=== PATIENT | male | born 1965 | race African-American/Black ===

== ENCOUNTER 2020-02-09 09:00 | Outpatient (RCR) | payer OTHER, SELFPAY ==
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
--- NOTE | 2019-11-25 11:36 | HMH.RHREAS ---
Rehab Reassessment Rehab OP Re-assessment Start: 11/25/19 11:22 Freq: Status: Active Protocol: Document 11/25/19 11:23 OSITO (Rec: 11/25/19 11:36 TARIBULMARORATNA [id number]) Electronically Signed By John Marina, PT 11/25/19 11:23 Rehab Re-assessment Subjective Subjective PT REPORTS 2-4/10 NECK PAIN ON VAS, AND FEELS 60% BETTER OVERALL SINCE I EVAL Objective Objective Notes CROM: FLX 0-45, EXT 0-50, L SB 0-40, R SB 0-45, B ROT 0-50 TTP: R UT 1-2/4, L UT 2/4, B SCALENE 1/4 MMT: B DELTOID MM 4+-5/5 Assessment Progress Assessment Progressing as Expected Assessment Notes pt with improved ROM, STRENGTH , AND TTP Patient goals met STG'S 09/18 LTG'S 04/21 Goals Not Met LTG'S 09/21 Plan Plan PT TO CONT. W/SKILLED P.T. TO MAKE FURTHER IMPROVEMENTS IN AROM, STRENGTH, AND TTP TO ALLOW FOR OPTIMAL FUNCTION Frequency of Therapy 1-2X/WK Duration of therapy 3-4WKS Time and Billing Re-Eval Time 15 Re-Eval Billing Units 1 PHYSICIAN CERTIFICATION: I certify the specified therapy services for [place] are required, authorized, and reviewed every 30 days.
--- NOTE | 2019-12-25 11:29 | HMH.RHREAS ---
Rehab Reassessment Rehab OP Re-assessment Start: 11/25/19 11:22 Freq: Status: Active Protocol: Document 12/25/19 11:24 OSITO (Rec: 12/25/19 11:28 TARIBULMARORATNA [id number]) Electronically Signed By John Marina, PT 12/25/19 11:24 Rehab Re-assessment Subjective Subjective PT REPORTS 0-4/10 NECK PAIN W/ ACTIVITY ON VAS, AND FEELS 85% BETTER OVERALL SINCE I EVAL Objective Objective Notes CROM: FLX 0-65, EXT 0-55, L SB 0-55, R SB 0-55, B ROT 0-60 TTP: R UT 1/4, L UT 1-2/4, B SCALENE 0-1/4 MMT: B DELTOID MM 5/5 Assessment Progress Assessment Progressing as Expected Assessment Notes pt with improved ROM, STRENGTH , AND TTP Patient goals met STG'S 09/18 LTG'S 09/21 Goals Not Met LTG'S 04/21 Plan Plan PT TO CONT. W/SKILLED P.T. TO MAKE FURTHER IMPROVEMENTS IN AROM, STRENGTH, AND TTP TO ALLOW FOR OPTIMAL FUNCTION Frequency of Therapy 1-2X/WK Duration of therapy 3-4WKS Time and Billing Re-Eval Time 15 Re-Eval Billing Units 1 PHYSICIAN CERTIFICATION: I certify the specified therapy services for [place] are required, authorized, and reviewed every 30 days.
== END 2020-02-09 09:05 | disposition home or self-care (01) ==
LOC: PT 09:00
PROVIDERS: PCP Internal Medicine Adolescent Medicine; Visit Provider Internal Medicine Adolescent Medicine
DX: M54.2 Cervicalgia (principal)
CPT/HCPCS: 20560; 97010; 97014; 97035; 97110; 97140; 97163; 97164; G0283

== ENCOUNTER → 2020-04-16 11:21 | Outpatient (CLI) | payer OTHER, SELFPAY ==
[2020-04-16 11:39] LABS: Basophils # 0.1 K/mm3 (0-0.2); Basophils % 1.1 % (0.1-2.0); Eosinophils # 0.2 K/mm3 (0.0-0.4); Eosinophils % 4.4 % (0.1-12.0); Hematocrit 49.1 % (42.0-52.0); Hemoglobin 15.7 g/dL (14.1-18.0); Lymphocytes # 2.1 K/mm3 (0.7-4.5); Lymphocytes % 46.1 % (10-50); Mean Corpuscular HGB Conc 31.9 g/dL (31.8-35.4); Mean Corpuscular Hemoglobin 28.1 pg (27.0-31.2); Mean Platelet Volume 7.5 fl (7.4-10.4); Monocytes # 0.4 K/mm3 (0.1-1.0); Monocytes % 7.6 % (1.7-9.3); Neutrophils # 1.9 K/mm3 (1.8-7.8); Neutrophils % 40.7 % (37.0-80.0); Platelet Count 423 K/mm3 (142-424); Red Blood Count 5.58 M/mm3 (4.60-6.20); Red Cell Distribution Width 13.4 % (11.5-17.5); White Blood Count 4.6 K/mm3 (4.8-10.8)
[2020-04-16 12:12] LABS: Hemoglobin A1C 6.5 % (4.0-6.0)
[2020-04-16 12:42] LABS: Alanine Aminotransferase 36 U/L (12-78); Albumin Level 4.7 g/dl (3.5-5.0); Albumin/Globulin Ratio 1.4 (1.1-1.8); Alkaline Phosphatase 65 U/L (38-126); Anion Gap 14.2 mEq/L (5-15); Aspartate Amino Transferase 34 U/L (17-59); Bilirubin,Total 0.4 mg/dl (0.2-1.3); Blood Urea Nitrogen 11 mg/dl (9-20); Calcium 10.2 mg/dl (8.4-10.2); Carbon Dioxide 29 mmol/L (22.0-30.0); Chloride 99 mmol/L (98-107); Chol/HDL Ratio 3.9 (1-3.5); Cholesterol 134 mg/dl (140-200); Estimated Glomerular Filt Rate 70 ml/min (>60); GFR (African American) 85 ML/MIN (>60); Globulin 3.4 g/dL (1.3-3.2); Glucose 108 mg/dl (74-100); HDL Cholesterol 34 mg/dl (40-60); Potassium 5.2 mmoL/L (3.5-5.1); Sodium 137 mmol/L (136-145); Total Protein,Serum 8.1 g/dl (6.3-8.2); Triglycerides 72 mg/dl (30-150); Uric Acid 5.1 mg/dl (3.5-8.5); VLDL Cholesterol 14 mg/dL (0-40)
[2020-04-16 12:53] LABS: Direct LDL Cholesterol 80.75 mg/dL (100-129)
[2020-04-16 13:13] LABS: Thyroid Stimulating Hormone 2.32 uIU/mL (0.465-4.68)
== END ==
PROVIDERS: Visit Provider Nurse Practitioner Family
DX: Z00.00 Encounter for general adult medical examination without abnormal findings (principal); I10 Essential (primary) hypertension; E78.5 Hyperlipidemia, unspecified; E11.9 Type 2 diabetes mellitus without complications; R31.9 Hematuria, unspecified
CPT/HCPCS: 36415; 80053; 80061; 83036; 84443; 84550; 85025

== ENCOUNTER → 2020-04-18 10:43 | Outpatient (CLI) | payer OTHER, SELFPAY ==
--- NOTE | 2020-04-18 10:51 | CT_ITS ---
PROCEDURE: CT ABDOMEN PELVIS WO CON CLINICAL INDICATION: HEMATURIA,UNSPECIFIED TYPE Dysuria and hematuria COMPARISON: CT ABDPELW CT ABD PELVIS W/ CONTRAST from 12/30/[address] abdomen pelvis wo con from 07/06/2017 TECHNIQUE: Axial images obtained with sagittal and coronal reformats. All CT scans at the facility use one or more dose reduction, viz: automated exposure control, ma/kV adjustment per patient size (including targeted exams where dose is matched to indication, i.e. head), or iterative reconstruction technique. FINDINGS: LOWER THORAX: There is a small defect within the right hemidiaphragm medially containing fat. ABDOMEN & PELVIS: There is a small hiatal hernia. Fatty liver infiltration. No focal liver lesion apparent. The gallbladder, spleen, adrenal glands, and pancreas have an unremarkable unenhanced appearance. No renal or ureteral calculi. No hydronephrosis. Small cyst suspected in the upper pole of the left kidney at 7 mm. There are scattered small retroperitoneal lymph nodes and small mesenteric lymph nodes. No evidence of appendicitis. There is colonic diverticulosis throughout the colon. No evidence of diverticulitis. No pelvic mass or abnormal fluid collection. There is minimal thickening of the urinary bladder wall nonspecific. There are mild osteoarthritic changes of the hips IMPRESSION: 1. No renal or ureteral calculi. 2. Minimal thickening of the urinary bladder wall which may be due to incomplete distention or mild cystitis. Dictated by: Edmund Sampson MD 04/18/2020 11:27 Edmund Sampson MD in [place] 04/18/2020 11:27
== END ==
PROVIDERS: PCP Internal Medicine Adolescent Medicine; Visit Provider Nurse Practitioner Family
DX: R31.9 Hematuria, unspecified (principal)
CPT/HCPCS: 74176

== ENCOUNTER → 2020-04-21 14:50 | Outpatient (CLI) | payer OTHER, SELFPAY ==
[2020-04-21 16:40] LABS: Prostate Specific Ag Screen 0.4 ng/ml (0.0-4.0)
== END ==
PROVIDERS: Visit Provider Urology
DX: Z12.5 Encounter for screening for malignant neoplasm of prostate (principal)
CPT/HCPCS: 36415; G0103

== ENCOUNTER 2020-07-22 13:49 | Emergency (ER) | payer OTHER, SELFPAY ==
[2020-07-22 14:28] VITALS: BP 137/84; PULSE 69; RESP 18; TEMP 36.9; O2SAT 98; BMI 35.6
--- NOTE | 2020-07-22 14:34 | HMH.EDUTC ---
[facility] [place] Disposition Clinical Impression: Bee sting Qualifiers: Encounter type: initial encounter Injury intent: accidental or unintentional Qualified Code(s): T63.441A - Toxic effect of venom of bees, accidental (unintentional), initial encounter Disposition: Home, Self-Care Condition on Discharge: Good Instructions: DI for Insect Bites and Stings Additional Instructions: Asymptomatic. RTC immediately if symptoms occur. Referrals: Fran Villasenor MD [Primary Care Provider] - Time of Disposition: 14:42 Medical Decision Making - [place] Inquiry Pt receiving controlled substance: No Vital Signs: 07/22/20 14:28 Temperature 98.4 F Temperature Source Oral Pulse Rate [Left] 69 Respiratory Rate 18 Blood Pressure [Right Arm] 137/84 Blood Pressure Mean [Right Arm] 101 02 Sat by Pulse Oximetry 98 [facility] [place] HPI - General Stated complaint: bee sting (allergic) Time Seen by Provider: 07/22/20 14:34 Mode of Arrival: Ambulatory Source of Information: Patient Limitations: No Limitations Description of Symptoms (Recalled from Triage Doc. by RN): PT states that he got stung by maybe a wood bee but he got stung by a bee when he was 32 so he thought he should get checked. HEENT Symptoms (Recalled from RN notes): No Resp Symptoms (Recalled from RN notes): No Skin Symptoms (Recalled from RN notes): Yes MS Symptoms (Recalled from RN notes): No Functional Status (Recalled from RN notes): wnl - History of Present Illness Provider Complaint: Patient states that he was stung by what he thinks was a wood bee on his right elbow a little over an hour ago. 20 years ago he was stung by a wasp and had trouble breathing so he rushed in, but now he states that he is fine. No swelling, itching, or difficulty breathing. Onset (ago): hour(s) (1) Location: right, upper extremity Relieving factors: none Exacerbating factors: none Associated symptoms: denies other symptoms Treatments prior to arrival: none - Related Data Home Medications Medication Instructions Recorded Confirmed ALPRAZolam [Xanax 1mg tab] 1 mg PO DAILY 07/06/17 07/07/20 Lisinopril/Hydrochlorothiazide 1 tab PO DAILY 07/06/17 07/07/20 [Lisinopril-Hctz 20-12.5 mg Tab] Escitalopram Oxalate 10 mg PO DAILY 07/05/18 07/07/20 Omeprazole [Omeprazole 20mg Tab] 20 mg PO DAILY 07/05/18 07/07/20 fluticasone propionate 50 g INTRANASAL 06/13/20 07/07/20 mcg/actuation nasal spray,suspension Previous Rx's Medication Instructions Recorded fexofenadine 180 mg tablet 180 mg PO DAILY #30 tab 06/13/20 Allergies Allergy/AdvReac Type Severity Reaction Status Date / Time venom-honey bee Allergy Intermediate SWELLING Verified 07/22/20 14:11 [BEE VENOM (HONEY BEE)] TO THROAT - Worker's Comp Is this a Worker's Comp case?: No [facility] History - Hepatitis A Screen Drug use history?: No High risk sexual behaviors?: No History of sexually transmitted infection?: No Currently employed?: No Childcare worker?: No Do you have indoor plumbing?: Yes Do you have electricity?: Yes Attestation statement:: This patient has been screened for Hepatitis A risk factors. I have reviewed the patient's past medical history: Yes Medical History: Reports:: Gastroesophageal Reflux Disease(GERD) Denies:: Cancer, Diabetes Mellitus Type 1, Diabetes Mellitus Type 2, MRSA Other Medical History: Reports: Arthritis, Sinus Problems Other Surgeries: Yes: No Previous Surgery, Colonoscopy, Other Amputation: No Fractures: No - Social History Smoking Status: Never smoker Tobacco Type: smokeless tobacco Alcohol Intake: current Alcohol Intake Frequency:: holidays/special occasions only Substance Use Type: denies use Occupational Status: employed Housing: house Household Members: spouse Family Hx:: Hyperlipidemia, Hypertension, Diabetes, Heart Attack, Stroke ROS Obtained: Yes All systems reviewed & no additional complaints Physical Exam - General General appearance: alert, in no a
[2020-07-22 14:35] VITALS: BP 137/84; PULSE 69; RESP 18; TEMP 36.9; O2SAT 98
== END 2020-07-22 14:54 | disposition home or self-care (01) ==
PROVIDERS: Emergency Provider Physician Assistant; PCP Internal Medicine Adolescent Medicine
DX: T63.441A Toxic effect of venom of bees, accidental (unintentional), initial encounter (principal); I10 Essential (primary) hypertension; K21.9 Gastro-esophageal reflux disease without esophagitis; Z91.030 Bee allergy status
CPT/HCPCS: 99202; G0463

== ENCOUNTER → 2020-12-12 11:39 | Outpatient (CLI) | payer OTHER, SELFPAY ==
[2020-12-12 12:11] LABS: Basophils % 0.6 % (0.1-2.0); Eosinophils # 0.3 K/mm3 (0.0-0.4); Eosinophils % 4.8 % (0.1-12.0); Hematocrit 45.1 % (42.0-52.0); Hemoglobin 14.5 g/dL (14.1-18.0); Lymphocytes # 2.2 K/mm3 (0.7-4.5); Lymphocytes % 40.1 % (10-50); Mean Corpuscular HGB Conc 32.2 g/dL (31.8-35.4); Mean Corpuscular Hemoglobin 28.6 pg (27.0-31.2); Mean Corpuscular Volume 88.7 fl (80-94); Mean Platelet Volume 8.3 fl (7.4-10.4); Monocytes # 0.5 K/mm3 (0.1-1.0); Monocytes % 8.2 % (1.7-9.3); Neutrophils # 2.5 K/mm3 (1.8-7.8); Neutrophils % 46.4 % (37.0-80.0); Platelet Count 406 K/mm3 (142-424); Red Blood Count 5.09 M/mm3 (4.60-6.20); Red Cell Distribution Width 13.5 % (11.5-17.5); White Blood Count 5.5 K/mm3 (4.8-10.8)
[2020-12-12 12:31] LABS: Hemoglobin A1C 6.7 % (4.0-6.0)
[2020-12-12 12:53] LABS: Chloride 98 mmol/L (98-107); Potassium 4.7 mmoL/L (3.5-5.1); Sodium 137 mmol/L (136-145)
[2020-12-12 12:55] LABS: Blood Urea Nitrogen 12 mg/dl (9-20); Estimated Glomerular Filt Rate 101 ml/min (>60); GFR (African American) 122 ML/MIN (>60)
[2020-12-12 12:56] LABS: Alanine Aminotransferase 48 U/L (12-78); Albumin Level 4.2 g/dl (3.5-5.0); Albumin/Globulin Ratio 1.1 (1.1-1.8); Alkaline Phosphatase 71 U/L (38-126); Anion Gap 12.7 mEq/L (5-15); Aspartate Amino Transferase 44 U/L (17-59); Bilirubin,Total 0.3 mg/dl (0.2-1.3); Calcium 9.5 mg/dl (8.4-10.2); Carbon Dioxide 31 mmol/L (22.0-30.0); Cholesterol 129 mg/dl (140-200); Globulin 3.7 g/dL (1.3-3.2); Glucose 109 mg/dl (74-100); Total Protein,Serum 7.9 g/dl (6.3-8.2); Triglycerides 87 mg/dl (30-150); VLDL Cholesterol 17 mg/dL (0-40)
[2020-12-12 12:57] LABS: HDL Cholesterol 32 mg/dl (40-60)
[2020-12-12 13:08] LABS: Direct LDL Cholesterol 85.13 mg/dL (100-129)
== END ==
PROVIDERS: Visit Provider Internal Medicine Adolescent Medicine
DX: E11.9 Type 2 diabetes mellitus without complications (principal); E78.5 Hyperlipidemia, unspecified
CPT/HCPCS: 36415; 80053; 80061; 83036; 85025

== ENCOUNTER 2022-01-19 06:39 | Day surgery (SDC) | payer OTHER, SELFPAY ==
[2022-01-15 13:47] VITALS: BMI 33.9
[2022-01-19 06:56] VITALS: BP 145/73; PULSE 69; RESP 18; TEMP 36.2; O2SAT 99
--- NOTE | 2022-01-19 07:18 | P.PN_ITS ---
[facility] Disclaimer: The information contained in this section may have been updated after the patient was seen, as this information can be updated by other users. Medical History Allergies Diabetes mellitus, type 2 History of gastroesophageal reflux (GERD) Hypertension Surgical History H/O skin graft History of colonoscopy [place] teeth extracted Family History Other Family history of diabetes mellitus type II Family history of hypertension Social History Smoking Status: Current every day smoker tobacco type: smokeless tobacco second hand exposure: No alcohol intake: current substance use type: denies use current occupational status: employed Travel in the last 8 weeks: None household members: spouse housing: house [facility] Anesthesia Checklist Patient Identification Patient Identification: Arm Band Structural Data Admitted From: Home Planned Operative Procedure/s: Colonoscopy Consent for Planned Operative Procedure(s) Verified: Yes Verified Documents: Surgical Consent and History and Physical NPO Status Verified Time NPO: 00:00 Additional verifications Anesthesia Reactions: No Airway Assessment C-Spine Mobility Assessed: Yes TMJ Mobility Assessed: Yes Dentition: Good Dentition Neurological Assessment Level of Consciousness: Awake and Alert Anesthesia Plan Anesthesia Risk discussed: Yes Anesthesia Plan: Verified ASA Class: II Anesthesia Type: MAC
[2022-01-19 07:22] VITALS: O2SAT 99
[2022-01-19 07:45] LABS: POC Glucose,Bedside 102 (70-110)
--- NOTE | 2022-01-19 07:51 | HMH.SCOPE ---
Procedure: Date: 01/19/22 Patient Date of :: 1965 Procedure Performed:: Total colonoscopy to terminal ileum Indications:: Patient is a 56-year-old male who had previously had screening colonoscopy in [address] Corey. He had 3 tubular adenomas at that time. Performing Provider:: Ignacio Vidales MD Referring Provider:: Fran Villasenor MD Sedation:: MAC sedation Procedure:: Patient history was obtained and appropriate physical examination was performed. Patient's medications and allergies were reviewed. Informed consent was obtained after explaining the benefits, alternatives, and risks of the procedure including, but not limited to, bleeding, perforation, missed lesions, and adverse reaction to anesthesia medications. Patient was transported to endoscopy procedure room. Patient was connected to monitoring devices. Throughout the procedure the patient's blood pressure, pulse, and oxygen saturations were monitored continuously. Patient identification and planned procedure were verified by the staff. Patient was positioned in lateral decubitus position. Digital anorectal exam was performed. Variable stiffness Olympus colonoscope was inserted and advanced under direct visualization to the cecum. Adequacy of the colonic preparation was noted. The colonoscope was advanced a short distance into the terminal ileum. The colonoscope was then slowly withdrawn while carefully examining the color, texture, anatomy, and integrity of the mucosoa circumferentially. Within the rectum retroflexion was performed. Colonoscope was then withdrawn. Findings:: Colonoscope was inserted and advanced to the cecum. Ileocecal valve and appendiceal orifice were identified. Colonic preparation was fair as there was an appreciable amount of particulate liquid stool. Thorough irrigation and suctioning was performed which allowed for adequate visualization. There was pandiverticulosis but no obvious polyps. Impression: Pandiverticulosis Fair prep Recommendations:: Recommend repeat colonoscopy in 5 years given prior history of multiple tubular adenomas and suboptimal prep Complications:: None immediate Estimated blood obtained (mL): 0
[2022-01-19 07:52] VITALS: BP 91/63; PULSE 82; RESP 18; TEMP 36.1; O2SAT 94
[2022-01-19 08:02] VITALS: BP 143/80; PULSE 82; RESP 16; O2SAT 99
[2022-01-19 08:12] VITALS: BP 138/73; PULSE 74; RESP 18; O2SAT 99
[2022-01-19 08:22] VITALS: BP 110/76; PULSE 74; RESP 16; TEMP 36.4; O2SAT 99
== END 2022-01-19 08:22 | disposition home or self-care (01) ==
PROVIDERS: PCP Internal Medicine Adolescent Medicine; Visit Provider Surgery
PROC: 0DJD8ZZ Inspection of Lower Intestinal Tract, Via Natural or Artificial Opening Endoscopic (ICD-10-PCS; CPT 45378; principal; 2022-01-19 07:30)
DX: Z12.11 Encounter for screening for malignant neoplasm of colon (principal); Z86.010 Personal history of colon polyps; K57.90 Diverticulosis of intestine, part unspecified, without perforation or abscess without bleeding; F17.210 Nicotine dependence, cigarettes, uncomplicated; Z79.899 Other long term (current) drug therapy; E11.9 Type 2 diabetes mellitus without complications
CPT/HCPCS: 45378; 82962

== ENCOUNTER 2022-09-18 20:03 | Emergency (ER) | payer OTHER, SELFPAY ==
[2022-09-18 20:04] VITALS: BP 142/99; PULSE 82; RESP 17; TEMP 36.9; O2SAT 99; BMI 31.9
[2022-09-18 20:30] VITALS: BP 138/95; PULSE 75; O2SAT 99
[2022-09-18 21:00] VITALS: BP 149/105; PULSE 70; RESP 18; O2SAT 96
[2022-09-18 21:31] VITALS: BP 121/84; PULSE 68; RESP 20; O2SAT 97
[2022-09-18 22:11] VITALS: BP 126/78; PULSE 71; RESP 17; TEMP 36.8; O2SAT 98
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
== END 2022-09-18 22:11 | disposition home or self-care (01) ==
PROVIDERS: Emergency Provider Emergency Medicine; PCP Internal Medicine Adolescent Medicine
DX: H57.12 Ocular pain, left eye (principal); R22.0 Localized swelling, mass and lump, head; T63.461A Toxic effect of venom of wasps, accidental (unintentional), initial encounter; E11.9 Type 2 diabetes mellitus without complications; I10 Essential (primary) hypertension
CPT/HCPCS: 99285

== ENCOUNTER 2023-08-05 12:44 | Emergency (ER) | payer OTHER, SELFPAY ==
[2023-08-05 13:30] VITALS: BP 107/74; PULSE 81; RESP 18; TEMP 36.8; O2SAT 100; BMI 33.5
--- NOTE | 2023-08-05 14:04 | EXP.UTC ---
Discharge Plan Disposition Patient Disposition: Home, Self-Care Condition: Good Prescriptions Prescriptions: New amoxicillin 500 mg capsule 500 mg PO TID 10 Days Qty: 30 0RF No Action fluticasone propionate 50 mcg/actuation spray,suspension 1 spray INTRANASAL DAILY Patient Comments: instill 2 SPRAYS IN EACH NOSTRIL TWICE DAILY escitalopram oxalate 20 mg tablet 20 mg PO DAILY Patient Comments: TAKE ONE TABLET BY MOUTH EVERY DAY lisinopril-hydrochlorothiazide 1 EACH tablet 1 tab PO DAILY alprazolam 1 tablet 1 mg PO DAILY omeprazole 20 tablet,delayed release (DR/EC) 20 mg PO DAILY Steglatro 15 mg Tablet 15 mg PO DAILY fexofenadine [Marie Allergy] 180 mg tablet 180 mg PO DAILY Referrals Follow up/Referrals: Fran Villasenor MD [Primary Care Provider] - See instructions Activity Restrictions/Add. Instructions Additional Instructions/Restrictions: Take medication as prescribed. Increase fluids and rest. If symptoms persist or worsen, follow up with PCP. Clinical Impressions Clinical Impression: Bilateral acute otitis media, Upper respiratory tract infection Instructions Patient Instructions: DI for Viral Upper Respiratory Infection -- Adult, Middle Ear Infection Discharge ED Provider: Elvia Sanchez [facility] [place] General Stated complaint: drainage, congestion Mode of Arrival: Ambulatory Source of Information: Patient Limitations: No Limitations Time Seen by Provider: 08/05/23 14:03 Description of Symptoms (Recalled from Triage Doc. by RN): Pt's symptoms are sinus pressure, cough, and drainage. HEENT Symptoms (Recalled from RN notes): Yes Resp Symptoms (Recalled from RN notes): No Skin Symptoms (Recalled from RN notes): No MS Symptoms (Recalled from RN notes): No Functional Status (Recalled from RN notes): n/a History of Present Illness Provider Complaint: Pt reports that symptoms started 3 days ago with a tickle that caused his cough. He states that he had some left over antibiotic and took 3 days worth of Cephalexin. He reports that this morning he woke up and felt a little worse. Related Data Home Medications Medication Instructions Recorded Confirmed alprazolam 1 mg tablet 1 mg PO DAILY Anxiety 07/06/17 08/05/23 lisinopril 20 1 tab PO DAILY BLOOD PRESSURE 07/06/17 08/05/23 mg-hydrochlorothiazide 12.5 mg tablet omeprazole 20 mg tablet,delayed 20 mg PO DAILY GERD 07/05/18 08/05/23 release fluticasone propionate 50 1 spray intranasal DAILY Allergy 06/13/20 08/05/23 mcg/actuation nasal symptoms spray,suspension ertugliflozin 15 mg tablet 15 mg PO DAILY Diabetes 01/15/22 08/05/23 (Steglatro) fexofenadine 180 mg tablet 180 mg PO DAILY Allergy symptoms 01/15/22 08/05/23 (Marie Allergy) escitalopram oxalate 20 mg tablet 20 mg PO DAILY 08/05/23 08/05/23 Previous Rx's Medication Instructions Recorded amoxicillin 500 mg capsule 500 mg PO TID 10 days #30 caps 08/05/23 Allergies Allergy/AdvReac Type Severity Reaction Status Date / Time venom-honey bee Allergy Intermediate SWELLING Verified 08/05/23 13:45 [BEE VENOM (HONEY BEE)] TO THROAT Worker's Comp Is this a Worker's Comp case?: No [facility] Disclaimer: The information contained in this section may have been updated after the patient was seen, as this information can be updated by other users. Medical History (Updated 08/05/23 @ 14:19 by Elvia Sanchez APRN) History of gastroesophageal reflux (GERD) Diabetes mellitus, type 2 Allergies Hypertension Surgical History H/O skin graft [place] teeth extracted History of colonoscopy Family History Other Family history of diabetes mellitus type II Family history of hypertension Social History Smoking Status: Never smoker second hand exposure: No alcohol intake: current alcohol intake frequency: holidays/special occasions only substance use type: denies use current occupational status: employed Travel in the last 8 weeks: None household members: spouse housing: house ROS Obtained: Yes All systems reviewed & no additional complaints except as documented Constitutional Constitutional: Reports system reviewed and no additional complaints, except as documented and Reports malaise Eyes Eyes: Reports system reviewed and no additional complaints, except as documented ENT Ears, Nose, Mouth, and Throat: Reports system reviewed and no additional complaints, except as documented, Reports otalgia and Reports nasal discharge Cardiovascular Cardiovascular: Reports system reviewed and no additional complaints, except as documented Respiratory Respiratory: Reports system reviewed and no additional complaints, except as documented and Reports cough Gastrointestinal Gastrointestingal: Reports system reviewed and no additional complaints, except as documented Genitourinary Male Genitourinary: Reports system reviewed and no additional complaints, except as documented Musculoskeletal Musculoskeletal: Reports system reviewed and no additional complaints, except as documented Integumentary/Breasts Skin/Breast: Reports system reviewed and no additional complaints, except as documented Neurologic Neurologic: Reports system reviewed and no additional complaints, except as documented Endocrine Endocrine: Reports system reviewed and no additional complaints, except as documented Hematologic/Lymphatic Henatologic/Lymphatic: Reports system reviewed and no additional complaints, except as documented Allergic/Immunologic Allergic/Immunologic: Reports system reviewed and no additional complaints, except as documented Physical Exam General General appearance: alert and in no apparent distress Head Head exam: atraumatic and normocephalic Eye Eye exam: Present normal appearance ENT ENT exam: Present mucous membranes moist Expanded ENT Exam External ear exam: Present normal external inspection TM/Canal exam: Bilateral TM: erythema, bulging, effusion and loss of landmarks Nose exam: Absent sinus tenderness Nasal speculum exam: Bilateral: other (clear drainage) Mouth exam: Present normal external inspection Teeth exam: Present normal inspection Throat exam: Present normal inspection Neck Neck exam: Present normal inspection; Absent lymphadenopathy Chest Chest inspection: Present normal inspection and symmetric chest wall rise Respiratory Respiratory exam: Present normal lung sounds bilaterally Cardiovascular Cardiovascular exam: Present regular rate, normal rhythm and normal heart sounds Abdominal Exam Abdominal exam: Present soft and normal bowel sounds Extremities Exam Extremities exam: Present normal inspection Back Exam Back exam: Present normal inspection Neurological Exam Neurological exam: Present alert and oriented X3 Psychiatric Psychiatric exam: Present normal affect and normal mood Skin Skin exam: Present warm, dry and intact Lymphatic Lymphatic Findings: no adenopathy Medical Decision Making Parrish Inquiry Pt receiving controlled substance: No Parrish was queried for this patient: No Vital Signs: 08/05/23 13:30 Temperature 98.2 F Temperature Source Oral Pulse Rate [Right Radial] 81 Respiratory Rate 18 Blood Pressure [Right Arm] 107/74 L Blood Pressure Mean [Right Arm] 85 Blood Pressure Source [Right Arm] Automatic Cuff Blood Pressure Position [Right Arm] Sitting 02 Sat by Pulse Oximetry 100 Oxygen Delivery Method Room Air
[2023-08-05 14:38] VITALS: BP 107/74; PULSE 81; RESP 18; TEMP 36.8; O2SAT 100
== END 2023-08-05 14:38 | disposition home or self-care (01) ==
PROVIDERS: Emergency Provider Nurse Practitioner Family; PCP Internal Medicine Adolescent Medicine
DX: H66.93 Otitis media, unspecified, bilateral (principal); R05.9 Cough, unspecified; J06.9 Acute upper respiratory infection, unspecified
CPT/HCPCS: 99204; 99212; G0463